=== PATIENT | male | born 1985 | race African-American/Black ===

== ENCOUNTER 2016-11-06 14:01 | Emergency (ER) | payer OTHER ==
[2016-11-06 14:16] VITALS: BP 154/75
[2016-11-06] MEDS ORDERED: oxyCODONE/Acetamin 5/325 MG* TAB PO ONE (15:22)
[2016-11-06 16:04] LABS: Hematocrit 46 % (42-52); Hemoglobin 15.6 g/dl (14.0-18.0); Mean Corpuscular HGB Conc 34 g/dl (31-36); Mean Corpuscular Hemoglobin 29 pg (27-31); Mean Corpuscular Volume 85 fL (80-94); Mean Platelet Volume 9 um3 (7.4-10.4); Red Blood Count 5.47 10^6/ul (4.0-5.4); Red Cell Distribution Width 14 % (10.5-15); White Blood Count 9.6 10^3/ul (3.5-10.8)
[2016-11-06 16:22] LABS: ALT 23 U/L (7-52); Albumin 4.3 g/dL (3.2-5.2); Alkaline Phosphatase 66 U/L (34-104); BUN/Creatinine Ratio 14.1 (8-20); Blood Urea Nitrogen 13 mg/dL (6-24); CO2 Carbon Dioxide 27 mmol/L (22-32); Calcium 9.1 mg/dL (8.6-10.3); Chloride 106 mmol/L (101-111); EGFR African American 123.4 (>60); Globulin 3.1 g/dL (2-4); Glucose 94 mg/dL (70-100); Sodium 137 mmol/L (133-145); Total Protein 7.4 g/dL (6.4-8.9)
[2016-11-06] MEDS ORDERED: Iohexol 300* (CONTRAST) 10 ML SDV IV ONE (16:31)
[2016-11-06] MEDS ORDERED: Clindamycin 600 MG IVPREMIX(* 600 MG/50 ML SDV IV ONE (16:45)
--- NOTE | 2016-11-06 16:57 | ED ---
Throat Pain/Nasal Congestion - HPI Summary HPI Summary: 31M presents with dental pain and facial swelling today on right side of face. He states he was having pain in his wisdom tooth over the past couple days. He states since last night the right side of his lower jaw has swollen. He denies any chest pain, SOB, swelling into neck, or difficulty swallowing. He denies any fever. He states that ibuprofen has been controlling his pain. He states that his wisdom tooth is cracked. - History of Current Complaint Chief Complaint: EDDentalPain Time Seen by Provider: 11/06/16 15:11 - Allergies/Home Medications Allergies/Adverse Reactions: Allergies Allergy/AdvReac Type Severity Reaction Status Date / Time No Known Allergies Allergy Verified 11/06/16 14:13 PMH/Surg Hx/FS Hx/Imm Hx Endocrine/Hematology History: Denies: Hx Diabetes Cardiovascular History: Denies: Hx Hypertension Infectious Disease History: Yes Infectious Disease History: Denies: Traveled Outside the [place] in Last 30 Days - Family History Known Family History: Negative: Cardiac Disease - Social History Alcohol Use: Weekly Substance Use Type: Reports: None Smoking Status (MU): Unknown if Ever Smoked Review of Systems Negative: Fever Positive: Dental Pain, Other - facial swelling Negative: Chest Pain Negative: Shortness Of Breath All Other Systems Reviewed And Are Negative: Yes Physical Exam Triage Information Reviewed: Yes Vital Signs On Initial Exam: Initial Vitals Temp Pulse Resp BP Pulse Ox 97.6 F 70 18 154/75 100 11/06/16 14:13 11/06/16 14:13 11/06/16 14:13 11/06/16 14:13 11/06/16 14:13 Vital Signs Reviewed: Yes Appearance: Positive: Well-Appearing Skin: Positive: Warm, Dry Head/Face: Positive: Normal Head/Face Inspection Eyes: Positive: Normal, Conjunctiva Clear ENT: Positive: Normal ENT inspection, Pharynx normal, TMs normal. Negative: Trismus, Muffled/hoarse voice Dental: Positive: Percussion Tenderness @ - 32, Dental Fracture @ - 32, Other - able to open mouth complete, tender and swelling along mandible. Negative: Bleeding Neck: Positive: Supple, Nontender, No Lymphadenopathy Respiratory/Lung Sounds: Positive: Clear to Auscultation, Breath Sounds Present Cardiovascular: Positive: Normal, RRR Diagnostics - Vital Signs Vital Signs Temp Pulse Resp BP Pulse Ox 11/06/16 14:13 97.6 F 70 18 154/75 100 - Laboratory Lab Results: Lab Results 11/06/16 11/06/16 Range/Units 16:00 16:00 WBC 9.6 (3.5-10.8) 10^3/ul RBC 5.47 H (4.0-5.4) 10^6/ul Hgb 15.6 (14.0-18.0) g/dl Hct 46 (42-52) % MCV 85 (80-94) fL MCH 29 (27-31) pg MCHC 34 (31-36) g/dl RDW 14 (10.5-15) % Plt Count 219 (150-450) 10^3/ul MPV 9 (7.4-10.4) um3 Neut % (Auto) 62.7 (38-83) % Lymph % (Auto) 25.2 (25-47) % [place] % (Auto) 9.6 H (1-9) % Eos % (Auto) 1.5 (0-6) % Baso % (Auto) 1.0 (0-2) % Absolute Neuts (auto) 6.0 (1.5-7.7) 10^3/ul Absolute Lymphs (auto) 2.4 (1.0-4.8) 10^3/ul Absolute Monos (auto) 0.9 H (0-0.8) 10^3/ul Absolute Eos (auto) 0.1 (0-0.6) 10^3/ul Absolute Basos (auto) 0.1 (0-0.2) 10^3/ul Absolute Nucleated RBC 0.02 10^3/ul Nucleated RBC % 0.2 Sodium 137 (133-145) mmol/L Potassium TNP Chloride 106 (101-111) mmol/L Carbon Dioxide 27 (22-32) mmol/L Anion Gap TNP BUN 13 (6-24) mg/dL Creatinine 0.92 (0.67-1.17) mg/dL Est GFR ( Amer) 123.4 (>60) Est GFR (Non-Af Amer) 96.0 (>60) BUN/Creatinine Ratio 14.1 (8-20) Glucose 94 (70-100) mg/dL Calcium 9.1 (8.6-10.3) mg/dL Total Bilirubin 0.30 (0.2-1.0) mg/dL AST TNP ALT 23 (7-52) U/L Alkaline Phosphatase 66 (34-104) U/L Total Protein 7.4 (6.4-8.9) g/dL Albumin 4.3 (3.2-5.2) g/dL Globulin 3.1 (2-4) g/dL Albumin/Globulin Ratio 1.4 (1-3) Result Diagrams: 11/06/16 16:00 11/06/16 17:15 Lab Statement: Any lab studies that have been ordered have been reviewed, and results considered in the medical decision making process. - CT maxillarfacial CT Interpretation: Positive (See Comments) - IMPRESSION: LARGE DENTAL CARIES INVOLVING THE RIGHT LOWER SECOND BICUSPID WELL A PERIAPICAL LUCENCY CONSISTENT WITH A PERIAPICAL ABSCESS. THERE IS EROSION OF THE OUTER CORTEX OF THE MANDIBLE AT THIS LEVEL AND THERE IS LIKELY PHLEGMONOUS CHANGES IN THE SUBCUTANEOUS FAT AND SOFT TISSUES SURROUNDING THE RIGHT LOWER MANDIBLE WITHOUT EVIDENCE OF DRAINABLE FLUID COLLECTION. DENTAL EXAMINATION IS SUGGESTED. CT Interpretation Completed By: Radiologist EENT Course/Dx - Course Course Of Treatment: 32M presents with dental pain and right sided facial swelling today. denies any fever, sob, chest pain, or difficulty swallowing. able to open up move full, no trismus, swelling noted on mandible. got labs normal. CT shows periapical abscess and soft tissue swelling from caries. discussed with dr maradiaga and there is no oral surgery coverage. gave clindamycin and due to no trismus and pain controlled will d/c home to have follow up with oral surgery tomorrow. unable to give oral surgery a call due to it being after hours. will have continue clindamycin due to pt PCN allergy. told to return if can not open mouth full, develops chest pain, SOB, or difficulty swallowing. patient understands and agrees with plan - Differential Diagnoses Differential Diagnoses: Dental Abscess, Dental Caries, Fractured Tooth, Maynor' s Angina - Diagnoses Provider Diagnoses: Dental caries Discharge - Discharge Plan Condition: Stable Disposition: HOME Prescriptions: Clindamycin CAP* [Cleocin 150 MG CAP*] 150 mg PO TID #90 cap oxyCODONE/Acetamin 5/325 MG* [Percocet 5/325 TAB*] 1 tab PO Q6H PRN #12 tab MDD 4 PRN Reason: Pain Patient Education Materials: Dental Caries (ED) Referrals: Noe Rodriguez MD [Doctor of Dental Medicine] - Eladio Hernandez MD [Doctor of Dental Medicine] - Additional Instructions: Take antibiotics: 3 tablets three times a day for 10 days Take ibuprofen every 6 hours, use narcotic for break through pain, inc fiber with narcotic Avoid hard, crunchy food until seen by oral surgeon Follow with oral surgeon as soon as possible Return to ED if unable to open jaw all the way, fever, shortness of breath, difficulty swallowing, or any new or worsening symptoms
--- NOTE | 2016-11-06 17:17 | RAD ---
Indication: Right mandibular swelling. CT of the facial bones was obtained in the axial plane. Sagittal and coronal reconstructed images were obtained. The mandible demonstrates no evidence of fracture. There is periapical lucency surrounding the right lower bicuspid with a large dental caries and periapical abscess. There appears to be erosion of the outer cortex of the mandible at this level. Diffuse soft tissue swelling and phlegmon is noted in the right superficial soft tissues just adjacent to the mandible consistent with phlegmon. No drainable fluid collections are noted. Enlarged lymph nodes are noted in the submental space measuring 10 mm. Right submandibular gland is unremarkable with no evidence of calculi. The parotid glands are otherwise unremarkable. The paranasal sinuses are clear. Nasal bone demonstrates no fracture. The visualized orbits are unremarkable. IMPRESSION: LARGE DENTAL CARIES INVOLVING THE RIGHT LOWER SECOND BICUSPID WELL A PERIAPICAL LUCENCY CONSISTENT WITH A PERIAPICAL ABSCESS. THERE IS EROSION OF THE OUTER CORTEX OF THE MANDIBLE AT THIS LEVEL AND THERE IS LIKELY PHLEGMONOUS CHANGES IN THE SUBCUTANEOUS FAT AND SOFT TISSUES SURROUNDING THE RIGHT LOWER MANDIBLE WITHOUT EVIDENCE OF DRAINABLE FLUID COLLECTION. DENTAL EXAMINATION IS SUGGESTED.
== END 2016-11-06 18:12 | disposition home or self-care (01) ==
LOC: ED 14:01
DX: K02.9 Dental caries, unspecified (principal)
CPT/HCPCS: 36415; 70487; 80053; 85025; 96365; 99282; A9270-GY; Q9967

== ENCOUNTER 2017-03-05 02:12 | Emergency (ER) | payer OTHER ==
[2017-03-05 02:27] VITALS: BP 147/93
[2017-03-05] MEDS ORDERED: Amoxicillin PO (*) 500 MG CAP PO ONE (02:51)
[2017-03-05] MEDS ORDERED: Ketorolac INJ* 60 MG/2 ML VIAL IM ONE (02:51)
[2017-03-05] MEDS ORDERED: oxyCODONE/Acetamin 5/325 MG* TAB PO ONE (02:52)
--- NOTE | 2017-03-05 02:56 | ED ---
Headache - HPI Summary HPI Summary: Left Lower dental pain awaiting on approval for dental surgery left lower pain and swelling worsening tonight - History Of Current Complaint Chief Complaint: EDDentalPain Stated Complaint: DENTAL PAIN Time Seen by Provider: 03/05/17 03:00 Hx Obtained From: Patient Onset/Duration: Sudden Onset Character: Throbbing Location of Headache: Other: - left lower jaw Aggravating Factor: Nothing - decayed and abscess tooth Allevating Factors: Nothing Associated Signs And Symptoms: Negative - Allergies/Home Medications Allergies/Adverse Reactions: Allergies Allergy/AdvReac Type Severity Reaction Status Date / Time No Known Allergies Allergy Verified 11/06/16 14:13 PMH/Surg Hx/FS Hx/Imm Hx Previously Healthy: Yes Endocrine/Hematology History: Denies: Hx Diabetes Cardiovascular History: Denies: Hx Hypertension Infectious Disease History: No Infectious Disease History: Denies: Traveled Outside the in Last 30 Days - Family History Known Family History: Negative: Cardiac Disease - Social History Occupation: Unemployed Lives: With Family Alcohol Use: Rare Hx Substance Use: Yes Substance Use Type: Reports: Marijuana Substance Use Comment - Amount & Last Used: tonight Hx Tobacco Use: Yes Smoking Status (MU): Former Smoker Do You Chew or Dip Tobacco: No Have You Chewed or Dipped Tobacco in the LAST YEAR: No Review of Systems Constitutional: Negative Eyes: Negative Positive: Dental Pain - left lower jaw Cardiovascular: Negative Respiratory: Negative Gastrointestinal: Negative Genitourinary: Negative Musculoskeletal: Negative Skin: Negative Neurological: Negative Psychological: Normal All Other Systems Reviewed And Are Negative: Yes Physical Exam Triage Information Reviewed: Yes Vital Signs On Initial Exam: Initial Vitals Temp Pulse Resp BP Pulse Ox 98.0 F 98 16 147/93 97 03/05/17 02:24 03/05/17 02:24 03/05/17 02:24 03/05/17 02:24 03/05/17 02:24 Vital Signs Reviewed: Yes Appearance: Positive: Well-Appearing, Well-Nourished, Pain Distress Skin: Positive: Warm, Skin Color Reflects Adequate Perfusion, Dry Head/Face: Positive: Normal Head/Face Inspection Eyes: Positive: Normal, Conjunctiva Clear ENT: Positive: Normal ENT inspection, Hearing grossly normal, Pharynx normal. Negative: Nasal congestion, Nasal drainage, Tonsillar swelling, Tonsillar exudate, Trismus, Muffled/hoarse voice, Dental tenderness Dental: Positive: Percussion Tenderness @ - left lower side of jaw, Gross Decay/ Caries @ Neck: Positive: Supple, Nontender, No Lymphadenopathy Respiratory/Lung Sounds: Positive: Clear to Auscultation, Breath Sounds Present Cardiovascular: Positive: Normal, RRR, Pulses are Symmetrical in both Upper and Lower Extremities Musculoskeletal: Positive: Normal, Strength/ROM Intact Neurological: Positive: Normal, Sensory/Motor Intact, Alert, Oriented to Person Place, Time Psychiatric: Positive: Normal, Affect/Mood Appropriate AVPU Assessment: Alert - [place] Coma Scale Best Eye Response: 4 - Spontaneous Best Motor Response: 6 - Obeys Commands Best Verbal Response: 5 - Oriented Diagnostics - Vital Signs Vital Signs Temp Pulse Resp BP Pulse Ox 03/05/17 02:24 98.0 F 98 16 147/93 97 - Laboratory Lab Statement: Any lab studies that have been ordered have been reviewed, and results considered in the medical decision making process. Headache Course/Dx - Course Assessment/Plan: amoxicillin pain control follow with [facility] as planned, follow blood pressure with PCP - Diagnoses Differential Diagnosis/HQI/PQRI: Tension Headache, Viral Syndrome, Other - dental abscess Provider Diagnoses: Dental abscess, Single episode of hypertension Discharge - Discharge Plan Condition: Stable Disposition: HOME Prescriptions: Amoxicillin PO (*) [Amoxicillin 500 MG CAP*] 500 mg PO TID #29 cap Ibuprofen TAB* [Motrin TAB* 600 MG] 600 mg PO Q6H PRN #40 tab PRN Reason: pain Oxycodone W/ Acetaminophen [Percocet 2.5-325 mg (NF)] 1 tab PO Q6H PRN #12 tab MDD 4 PRN Reason: pain Patient Education Materials: Toothache (ED) Referrals: No Primary Care Phys,NOPCP [Primary Care Provider] - Additional Instructions: Follow with [facility] as Planned
== END 2017-03-05 03:17 | disposition home or self-care (01) ==
LOC: ED 02:12
DX: K04.7 Periapical abscess without sinus (principal); I10 Essential (primary) hypertension; F12.90 Cannabis use, unspecified, uncomplicated; Z87.891 Personal history of nicotine dependence
CPT/HCPCS: 96372; 99282; A9270-GY; J1885

== ENCOUNTER 2017-05-12 21:14 | Emergency (ER) | payer MEDICAID, OTHER ==
--- NOTE | 2017-05-12 22:12 | RAD ---
Indication: LEFT knee pain following injury; limited weightbearing. Comparison: No relevant prior exams available on the [facility] PACS for comparison. Technique: LEFT knee: AP, tunnel, lateral, sunrise views. Report: Small suprapatellar joint effusion. Chronic appearing fragmented osteophyte at the lateral facet of the patella. No acute fracture evident. Minimal osteophytosis and mild medial joint space narrowing. Unremarkable soft tissue contours. IMPRESSION: Small joint effusion and mild osteoarthritis. Negative for fracture.
[2017-05-12 23:19] VITALS: BP 148/90
--- NOTE | 2017-05-13 02:13 | ED ---
Lower Extremity - HPI Summary HPI Summary: 31M presents with left knee pain. He was jumping on trampoline and hyperextended this knee. He states that he had immediate pain and was not able to ambulate. He did ambulate into the building though. He did not take anything for pain. pain is 8/10. He denies any previous injury to the area. He denies any numbness or tingling. He states that his pain is on the outer edges of his patella. He also has swelling there. He denies any other injury. - History of Current Complaint Chief Complaint: EDExtremityLower Stated Complaint: LEFT KNEE INJURY Time Seen by Provider: 05/13/17 01:34 Pain Intensity: 9 - Allergies/Home Medications Allergies/Adverse Reactions: Allergies Allergy/AdvReac Type Severity Reaction Status Date / Time dish soap Allergy Rash And Uncoded 05/12/17 21:18 Itching PMH/Surg Hx/FS Hx/Imm Hx Endocrine/Hematology History: Denies: Hx Diabetes Cardiovascular History: Denies: Hx Hypertension - Immunization History Date of Tetanus Vaccine: utd Date of Influenza Vaccine: none Infectious Disease History: No Infectious Disease History: Denies: Traveled Outside the [place] in Last 30 Days - Family History Known Family History: Negative: Cardiac Disease - Social History Alcohol Use: Rare Hx Substance Use: Yes Substance Use Type: Reports: Marijuana Substance Use Comment - Amount & Last Used: tonight under a gram Hx Tobacco Use: Yes Smoking Status (MU): Former Smoker Review of Systems Negative: Fever Negative: Chest Pain Negative: Shortness Of Breath Positive: Myalgia - left knee All Other Systems Reviewed And Are Negative: Yes Physical Exam Triage Information Reviewed: Yes Vital Signs On Initial Exam: Initial Vitals Temp Pulse Resp BP Pulse Ox 97.1 F 80 14 150/74 97 05/12/17 21:16 05/12/17 21:16 05/12/17 21:16 05/12/17 21:16 05/12/17 21:16 Vital Signs Reviewed: Yes Appearance: Positive: Well-Appearing Skin: Positive: Warm, Dry Head/Face: Positive: Normal Head/Face Inspection Eyes: Positive: Normal, Conjunctiva Clear Respiratory/Lung Sounds: Positive: Clear to Auscultation, Breath Sounds Present Cardiovascular: Positive: Normal, RRR Musculoskeletal: Positive: Strength/ROM Intact - left knee with pain, Edema Left - minimial on lateral and medial aspect of knee, Other - good pulses, tender over lateral and medial aspect of knee, nontender patella, neg ballotment , anterior and posterior drawer, and berenice - [place] Coma Scale Coma Scale Total: 15 Diagnostics - Vital Signs Vital Signs Temp Pulse Resp BP Pulse Ox 05/12/17 23:14 97.7 F 82 14 148/90 97 05/12/17 21:16 97.1 F 80 14 150/74 97 - Laboratory Lab Statement: Any lab studies that have been ordered have been reviewed, and results considered in the medical decision making process. - Radiology knee Xray Interpretation: No Acute Changes - IMPRESSION: Small joint effusion and mild osteoarthritis. Negative for fracture. Radiology Interpretation Completed By: Radiologist Lower Extremity Course/Dx - Course Course Of Treatment: 31M presents with left knee pain. He was jumping on trampoline and hyperextended this knee. He states that he had immediate pain and was not able to ambulate. He did ambulate into the building though. He did not take anything for pain. pain is 8/10. He denies any previous injury to the area. He denies any numbness or tingling. He states that his pain is on the outer edges of his patella. He also has swelling there. on exam tender over lateral and medial aspect of knee, nontender patella. neg anterior drawer and berenice. xray no fracture. placed in knee immbolizer and told to follow up with ortho if no improvement. patient understands and agrees with plan. - Diagnoses Differential Diagnosis/HQI/PQRI: Positive: Fracture (Closed), Sprain, Strain Provider Diagnoses: Left knee pain Discharge - Discharge Plan Condition: Good Disposition: HOME Patient Education Materials: Knee Pain (ED) Forms: *Work Release Referrals: [facility]FERR[facility] [Outside] Dion Shah MD [Medical Doctor] - Additional Instructions: Take Tylenol or ibuprofen every 6 hours as needed for pain Apply ice, rest, elevate Follow up with ortho if no improvement within 7 days Return to ED if develop any new or worsening symptoms
== END 2017-05-13 02:26 | disposition home or self-care (01) ==
LOC: ED 21:14
DX: M25.562 Pain in left knee (principal); Z87.891 Personal history of nicotine dependence
CPT/HCPCS: 99281

== ENCOUNTER 2018-09-04 17:16 | Emergency (ER) | payer OTHER ==
[2018-09-04] MEDS ORDERED: Naproxen TAB* 250 MG PO ONE (17:59)
--- NOTE | 2018-09-04 18:33 | ED ---
Lower Extremity - HPI Summary HPI Summary: Patient is a 33-year-old male who presents emergency department for left knee swelling and pain 2-1/2 weeks. Patient does not recall any specific injuries or falls. 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 Patient notes intermittent knee pain throughout his life. Patient denies fever, chills, redness or rash. Denies recent tick bites. Patient states that swelling has been improving. Walking and bending the makes symptoms worse. Elevation makes symptoms better. Patient has not taken any home analgesics. Otherwise denies past medical history. - History of Current Complaint Chief Complaint: EDExtremityLower Stated Complaint: LEFT KNEE PAIN Time Seen by Provider: 09/04/18 17:36 Hx Obtained From: Patient Pain Intensity: 5 - Allergies/Home Medications Allergies/Adverse Reactions: Allergies Allergy/AdvReac Type Severity Reaction Status Date / Time No Known Allergies Allergy Verified 09/04/18 17:20 PMH/Surg Hx/FS Hx/Imm Hx Previously Healthy: Yes Endocrine/Hematology History: Denies: Hx Diabetes Cardiovascular History: Denies: Hx Hypertension - Immunization History Date of Tetanus Vaccine: utd Date of Influenza Vaccine: NO Immunizations Up to Date: Yes Infectious Disease History: No Infectious Disease History: Denies: Traveled Outside the [place] in Last 30 Days - Family History Known Family History: Positive: Non-Contributory Negative: Cardiac Disease - Social History Occupation: Employed Full-time Lives: With Family Alcohol Use: Rare Hx Substance Use: Yes Substance Use Type: Reports: Marijuana Substance Use Comment - Amount & Last Used: tonight under a gram Hx Tobacco Use: Yes Smoking Status (MU): Former Smoker Review of Systems Constitutional: Negative Negative: Fever, Chills Positive: Other - Left knee pain and swelling Negative: Weakness, Paresthesia, Numbness All Other Systems Reviewed And Are Negative: Yes Physical Exam Triage Information Reviewed: Yes Vital Signs On Initial Exam: Initial Vitals Temp Pulse Resp BP Pulse Ox 98 F 80 16 168/93 98 09/04/18 17:19 09/04/18 17:19 09/04/18 17:19 09/04/18 17:19 09/04/18 17:19 Vital Signs Reviewed: Yes Appearance: Positive: Well-Appearing - Pt. lying in recliner in NAD. Daughter present. Skin: Positive: Warm, Dry Head/Face: Positive: Normal Head/Face Inspection Eyes: Positive: Normal, EOMI Neck: Positive: Supple Musculoskeletal: Positive: Other - Moderate effusion noted to the left knee. No overlying erythema or increased warmth. Almost full ROM with flexion with mild pain. No calf swelling or tenderness. Neurological: Positive: Normal, CN Intact II-III Psychiatric: Positive: Affect/Mood Appropriate Diagnostics - Vital Signs Vital Signs Temp Pulse Resp BP Pulse Ox 09/04/18 17:19 98 F 80 16 168/93 98 - Laboratory Lab Statement: Any lab studies that have been ordered have been reviewed, and results considered in the medical decision making process. Lower Extremity Course/Dx - Course Course Of Treatment: Pt. presenting with atraumatic knee effusion. No evidence of septic joint on exam. Afebrile. Did drawn lyme titer. Will treat with NSAIDS , compression, ice elevation. Advised pt. to call ortho. clinic tomorrow for possible aspiration if sxs continue. To return for fever, increased pain, redness. Pt. understands and agrees with plan. - Diagnoses Differential Diagnosis/HQI/PQRI: Positive: Arthritis, Bursitis, Cellulitis, Gout , Infection, Sprain, Strain Provider Diagnoses: Knee effusion, left Discharge - Sign-Out/Discharge Documenting (check all that apply): Patient Departure - Discharge Plan Condition: Good Disposition: HOME Prescriptions: Naproxen [Naproxen 500 mg tab] 500 mg PO BID #20 tablet Patient Education Materials: Swollen Knee Joint (ED) Referrals: Gustavo Coleman MD [Medical Doctor] - Mane Vergara MD [Primary Care Provider] - Additional Instructions: Call the orthopedic clinic tomorrow to schedule a follow up appointment Ice and elevate intermittently Naproxen as directed for pain and swelling Wear alex wrap for comfort Return to ER for increased pain, fever, redness, inability to bend knee - Billing Disposition and Condition Condition: GOOD Disposition: Home
[2018-09-04 19:26] VITALS: BP 143/88
== END 2018-09-04 19:25 | disposition home or self-care (01) ==
LOC: ED 17:16
DX: M25.462 Effusion, left knee (principal); M25.562 Pain in left knee; Z87.891 Personal history of nicotine dependence
CPT/HCPCS: 86618; 99282; A9270-GY